=== PATIENT | male | born 1970 | race Caucasian/White ===

== ENCOUNTER 2017-02-16 11:02 | Inpatient (IN) | payer OTHER ==
[2017-02-16] MEDS ORDERED: SODIUM CHLORIDE 0.9% 1,000 ML IV STA ×2 (11:57)
[2017-02-16] MEDS ORDERED: AMPICILLIN-SULBACTAM 3 GM in SODIUM CHLORIDE 0.9% 100 ML IVPB STA (11:57)
[2017-02-16] MEDS ORDERED: IV VANCOMYCIN PER PHARMACY 1 EACH MISC MISCELLANE PRN (11:57)
--- NOTE | 2017-02-16 12:01 | ED ---
General Adult HPI - General Chief complaint: Extremity Problem,Nontraumatic Stated complaint: leg infection Time Seen by Provider: 02/16/17 11:25 Source: patient, RN notes reviewed, old records reviewed Mode of arrival: ambulatory Limitations: no limitations - History of Present Illness Initial comments: This is a 38-year-old male to the ER for evaluation of leg pain and swelling. Patient's severe pain and swelling of his left lower extremity. Patient has no history of diabetes, no other medical issues. Patient was seen by his family doctor for a bug bite he sustained about 3 days ago. Since then he's and put on IV or IM antibiotic shots which is beginning daily at his doctor's office, patient is also getting by mouth antibiotics, both in the form of a cephalosporin, patient has no improvement actually worsening, so leg is swelling erythema is increasing in symptoms or spreading up his leg. He has had occasional fever nausea and chills - Related Data Home Medications Medication Instructions Recorded Confirmed Cephalexin [Keflex] 500 mg PO TID 02/16/17 02/16/17 Allergies Allergy/AdvReac Type Severity Reaction Status Date / Time avocado Allergy Itching Verified 02/16/17 11:44 Review of Systems ROS Statement: Those systems with pertinent positive or pertinent negative responses have been documented in the HPI. ROS Other: All systems not noted in ROS Statement are negative. Past Medical History Past Medical History: GERD/Reflux Additional Past Medical History / Comment(s): CPAP at night History of Any Multi-Drug Resistant Organisms: None Reported Past Surgical History: Hernia Repair Additional Past Surgical History / Comment(s): facial surgery2 PLATES AND SCREWS IN PLACE. OPTICAL HERNIA. Past Anesthesia/Blood Transfusion Reactions: No Reported Reaction Past Psychological History: No Psychological Hx Reported Smoking Status: Former smoker Past Alcohol Use History: None Reported Past Drug Use History: None Reported - Past Family History Father Additional Family Medical History / Comment(s): WAS ALCOHOLIC.HAD SEVERAL STROKES AND AT AGE 61 Mother Family Medical History: Cancer Additional Family Medical History / Comment(s): LYMPHOMA- AT AGE 59 General Exam Limitations: no limitations General appearance: alert, in no apparent distress Head exam: Present: atraumatic, normocephalic, normal inspection Eye exam: Present: normal appearance, PERRL, EOMI. Absent: scleral icterus, conjunctival injection, periorbital swelling ENT exam: Present: normal exam, mucous membranes moist Neck exam: Present: normal inspection. Absent: tenderness, meningismus, lymphadenopathy Respiratory exam: Present: normal lung sounds bilaterally. Absent: respiratory distress, wheezes, rales, rhonchi, stridor Cardiovascular Exam: Present: regular rate, normal rhythm, normal heart sounds. Absent: systolic murmur, diastolic murmur, rubs, gallop, clicks GI/Abdominal exam: Present: soft, normal bowel sounds. Absent: distended, tenderness, guarding, rebound, rigid Extremities exam: Present: normal inspection, full ROM, normal capillary refill , other (O showed edema, is warm, significant cellulitis from ankle passed proximal knee). Absent: tenderness, pedal edema, joint swelling, calf tenderness Back exam: Present: normal inspection Neurological exam: Present: alert, oriented X3, CN II-XII intact Psychiatric exam: Present: normal affect, normal mood Skin exam: Present: warm, dry, intact, normal color. Absent: rash Course Vital Signs 02/16/17 11:16 Temperature 98.7 F Pulse Rate 83 Respiratory 18 Rate Blood Pressure 133/78 O2 Sat by Pulse 94 L Oximetry - Reevaluation(s) Reevaluation #1: 02/16/17 13:06 Outpatient ultrasound showing no DVT Medical Decision Making - Medical Decision Making 38 LEF reevaluation significant cellulitis infection of left lower Richelle patient be admitted for IV antibiotics and continued therapy, physical outpatient therapy - Lab Data Result diagrams: 02/16/17 12:15 02/16/17 12:15 Lab Results 02/16/17 02/16/17 Range/Units 12:15 12:15 WBC 5.9 (3.8-10.6) k/uL RBC 4.45 (4.30-5.90) m/uL Hgb 12.8 L (13.0-17.5) gm/dL Hct 37.1 L (39.0-53.0) % MCV 83.5 (80.0-100.0) fL MCH 28.8 (25.0-35.0) pg MCHC 34.5 (31.0-37.0) g/dL RDW 13.1 (11.5-15.5) % Plt Count 278 (150-450) k/uL Neutrophils % 65 % Lymphocytes % 21 % Monocytes % 6 % Eosinophils % 3 % Basophils % 1 % Neutrophils # 3.8 (1.3-7.7) k/uL Lymphocytes # 1.2 (1.0-4.8) k/uL Monocytes # 0.4 (0-1.0) k/uL Eosinophils # 0.2 (0-0.7) k/uL Basophils # 0.0 (0-0.2) k/uL Sodium 140 (137-145) mmol/L Potassium 4.0 (3.5-5.1) mmol/L Chloride 105 (98-107) mmol/L Carbon Dioxide 25 (22-30) mmol/L Anion Gap 10 mmol/L BUN 18 (9-20) mg/dL Creatinine 1.00 (0.66-1.25) mg/dL Est GFR (MDRD) Af Amer >60 (>60 ml/min/1.73 sqM) Est GFR (MDRD) Non-Af >60 (>60 ml/min/1.73 sqM) Glucose 99 (74-99) mg/dL Calcium 8.5 (8.4-10.2) mg/dL Phosphorus 3.6 (2.5-4.5) mg/dL Magnesium 2.1 (1.6-2.3) mg/dL Total Bilirubin 0.6 (0.2-1.3) mg/dL AST 38 (17-59) U/L ALT 57 (21-72) U/L Alkaline Phosphatase 64 (38-126) U/L Total Protein 7.1 (6.3-8.2) g/dL Albumin 3.7 (3.5-5.0) g/dL Disposition Clinical Impression: Cellulitis, Failure of outpatient treatment, Left leg cellulitis Disposition: ADMITTED IP TO THIS [facility] Condition: Fair Referrals: Freddy Turk MD [Primary Care Provider] - 1-2 days
[2017-02-16 12:46] LABS: Basophils % (A) 1 %; CH 27.9; CHCM 33.6; Eosinophils # (A) 0.2 k/uL (0-0.7); Eosinophils % (A) 3 %; HCT 37.1 % (39.0-53.0); HDW 2.73; HGB 12.8 gm/dL (13.0-17.5); Luc % (Auto) 3; Lymphocytes # (A) 1.2 k/uL (1.0-4.8); Lymphocytes % (A) 21 %; MCH 28.8 pg (25.0-35.0); MCHC 34.5 g/dL (31.0-37.0); MCV 83.5 fL (80.0-100.0); Mean Platelet Volume 7.1; Monocytes # (A) 0.4 k/uL (0-1.0); Monocytes % (A) 6 %; Neutrophils # (A) 3.8 k/uL (1.3-7.7); Neutrophils % (A) 65 %; RBC 4.45 m/uL (4.30-5.90); RDW 13.1 % (11.5-15.5); WBC 5.9 k/uL (3.8-10.6); WBC (Perox) 5.87
[2017-02-16 12:58] LABS: ALT 57 U/L (21-72); AST 38 U/L (17-59); Alkaline Phosphatase 64 U/L (38-126); Anion Gap 10 mmol/L; Blood Urea Nitrogen 18 mg/dL (9-20); Calcium 8.5 mg/dL (8.4-10.2); Carbon Dioxide 25 mmol/L (22-30); Chloride 105 mmol/L (98-107); Glucose 99 mg/dL (74-99); Magnesium 2.1 mg/dL (1.6-2.3); Non-African American GFR(MDRD) >60 (>60 ml/min/1.73 sqM); Phosphorous 3.6 mg/dL (2.5-4.5); Sodium 140 mmol/L (137-145); Total Bilirubin 0.6 mg/dL (0.2-1.3); Total Protein 7.1 g/dL (6.3-8.2)
[2017-02-16] MEDS ORDERED: VANCOMYCIN 2,000 MG in SODIUM CHLORIDE 0.9% 500 ML IVPB ONE ×2 (13:00→19:00)
--- NOTE | 2017-02-16 17:14 | P.HPIM ---
History of Present Illness H&P Date: 02/16/17 Chief Complaint: Left leg redness History of present complaint: This is a pleasant 46-year-old patient of Dr. oneill. Chronic stable medical conditions include GERD, arthritis sleep apnea. Patient week ago was bit by a spider. Patient went in to see Dr. oneill after there was increasing redness , pain, swelling in that leg. And he did receive IM ceftriaxone injection on 4 consecutive days including Monday and Monday and . There wasn't any Improvement in the redness and it continues to increase and hence the patient to the ER. Was sent down. Patient noticed some swelling to 3 days ago. Pain at the site. Patient otherwise in good health. GEN.: Tired EYES: None HEENT: None NECK: None RESPIRATORY: None CARDIOVASCULAR: None GASTROINTESTINAL: None GENITOURINARY: None MUSCULOSKELETAL: None LYMPHATICS: None HEMATOLOGICAL: None PSYCHIATRY: None NEUROLOGICAL: None DERMATOLOGICAL: As above Past medical history: GERD, obstructive sleep apnea Past surgical history: Hernia repair, facial surgery to place a screws in place, optical hernia repair Social history: , better, patient smoked for about 35 years stop in 2012 Home medications reviewed in the electronic computer ALLERGIES to avocado VITAL SIGNS: 98.7, 83, 18, 133/78, 94% room air GENERAL: Well-built, BMI 34.7, laying in bed a bit tired appearing. EYES: Pupils equal. Conjunctiva normal. HEENT: External appearance of nose and ears normal, oral cavity grossly normal. NECK: JVD not raised; masses not palpable. HEART: First and second heart sounds are normal; no edema. LUNGS: Respiratory rate normal; slightly decreased breath sounds. ABDOMEN: Soft, nontender, liver spleen not palpable, no masses palpable. LYMPHATICS: No lymph nodes palpable in the axilla and neck. PSYCH: Alert and oriented x3; mood and affect normal. NEUROLOGICAL: Cranial nerves grossly intact; no facial asymmetry, power and sensation grossly intact DERMATOLOGICAL: Patient left lower extremity below the knee is swollen and red slightly tender. Spider entry chan are noted. Investigations: White count 5.9, and Proventil 0.8, potassium 4.0,. Crit is normal. Assessment: -This is a patient who had a spider bite about a week ago. Received 4 consecutive days of IM Rocephin with no improvement. Patient continued to have increasing pain cellulitis in the leg. This appears to be a severe localized ALLERGIC reaction and may be a infective component of the same. -Obesity BMI 34.7 -Arthritis sleep apnea uses CPAP machine -Chronic GERD Plan: Patient started on IV Benadryl and IV Pepcid. We will also put the patient IV vancomycin. Use Silvadene cream and Kerlix and Lamonte wrap. Care was discussed with the patient and questions were answered, Dr. oneill and a dictation . Past Medical History Past Medical History: GERD/Reflux, Sleep Apnea/CPAP/BIPAP Additional Past Medical History / Comment(s): CPAP at night History of Any Multi-Drug Resistant Organisms: None Reported Past Surgical History: Hernia Repair Additional Past Surgical History / Comment(s): facial surgery [address] OPTICAL HERNIA REPAIR. 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 Smoking Status: Former smoker Past Alcohol Use History: None Reported Additional Past Alcohol Use History / Comment(s): STARTED SMOKING AT AGE 4 SMOKED 1 PACK IN 2-3 DAYS, QUIT 2011 Past Drug Use History: None Reported - Past Family History Father Family Medical History: CVA/TIA Additional Family Medical History / Comment(s): WAS ALCOHOLIC.HAD SEVERAL STROKES AND AT AGE 61 Mother Family Medical History: Cancer Additional Family Medical History / Comment(s): LYMPHOMA- AT AGE 59 Medications and Allergies Home Medications Medication Instructions Recorded Confirmed Type Cephalexin [Keflex] 500 mg PO TID 02/16/17 02/16/17 History Allergies Allergy/AdvReac Type Severity Reaction Status Date / Time avocado Allergy Itching Verified 02/16/17 11:44 Results CBC & Chem 7: 02/16/17 12:15 02/16/17 12:15
[2017-02-16] MEDS ORDERED: AMPICILLIN-SULBACTAM 3 GM in SODIUM CHLORIDE 0.9% 100 ML IVPB SCH (18:00)
[2017-02-16] MEDS: diphenhydrAMINE 50 MG/ML 1 ML VIAL IVP SCH ×2 (18:26→23:35)
[2017-02-16] MEDS: FAMOTIDINE 20 MG/2 ML VIAL IV SCH ×2 (19:21→19:41)
[2017-02-17] MEDS ORDERED: VANCOMYCIN 1,750 MG in SODIUM CHLORIDE 0.9% 250 ML IVPB SCH ×2
[2017-02-17] MEDS: diphenhydrAMINE 50 MG/ML 1 ML VIAL IVP SCH ×4 (05:53→23:41)
[2017-02-17] MEDS: VANCOMYCIN 1,750 MG in SODIUM CHLORIDE 0.9% 250 ML IVPB SCH ×2 (06:38→19:16)
[2017-02-17] MEDS: ENOXAPARIN 40 MG/0.4 ML SYRINGE SQ SCH (08:35)
[2017-02-17] MEDS: FAMOTIDINE 20 MG/2 ML VIAL IV SCH (08:35)
--- NOTE | 2017-02-17 19:07 | P.PN ---
<Esperanza Stinson - Last Filed: 02/17/17 18:54> Progress Note - Text DATE OF SERVICE: 02/17/2017 PRESENTING COMPLAINT: Left leg redness HISTORY OF PRESENT ILLNESS: 46-year-old patient who presented after being seen by his family doctor with increasing redness pain and swelling in the left leg. Received IM ceftriaxone 4 days with no improvement. INTERVAL HISTORY: 02/17/2017: Patient sitting up in the bed, appears comfortable. Left lower extremity less red less swollen than days previous. Left knee However remains red and warm swollen very tender to palpation. Patient continued on vancomycin with Silvadene cream Pepcid and Benadryl. Patient's ambulatory within the room in the hallways, tolerating his diet eating 100% of his meals. Moving his bowels last BM 02/17/2017. REVIEW OF SYSTEMS: Done for constitutional ,cardiovascular, GI, pulmonary with relevant findings as above. CURRENT MEDICATIONS Benadryl, Lovenox, Pepcid, Silvadene cream, vancomycin. PHYSICAL EXAM VITAL SIGNS: Temperature 98.4, pulse 67, respiratory rate 16, blood pressure 131/86, oxygen saturation 98% on room air. GENERAL APPEARANCE: Sitting up on the bed, not in distress. EYES: Pupils equal. Conjunctiva normal. NECK: JVD not raised. Mass not palpable. RESPIRATORY: Respiratory effort normal. Lungs clear to auscultation. CARDIOVASCULAR: First and second sounds normal. No edema. ABDOMEN: Soft. Liver and spleen not palpable. No tenderness. No mass palpable. PSYCHIATRY: Alert and oriented x3. Mood and affect normal. INTEGUMENT: Left lower extremity warm, red, tender, knee cap exquisitely tender to palpation INVESTIGATIONS: Hemoglobin 12.8, hematocrit 37.1, all other labs unremarkable. ASSESSMENT: -Left lower extremity cellulitis secondary to a spider bite, received 4 consecutive days of IM Rocephin no improvement. Appears to be a severe localized ALLERGIC reaction possible infective component. -Obesity body mass index 34.7 -Obstructive sleep apnea uses CPAP machine. -Chronic GERD PLAN: Continue patient on IV vancomycin, IV Benadryl and IV Pepcid. Sodium cream and Kerlix and Lamonte wraps for local wound care. Plan of care discussed with the patient at the bedside he is in agreement. We'll continue to follow closely. SHACKLER statement: Patient was seen and examined by nurse practitioner Esperanza Stinson and all elements of the case discussed with attending Dr. Lora <Cipriano Lora - Last Filed: 02/17/17 21:59> Progress Note - Text Attending note. Date of service-02/17/2017 This patient was seen and examined by me . Discussed the patient with my nurse practitioner Ms. Stinson. Acute severe ALLERGIC reaction localized following up spider bite and element of cellulitis. Redness and tenderness is improving. Localized area over the bursa red and tender. Patient able to flex his knee better. Overall feeling much better On examination: Decreased redness of the left leg. Some area of redness over the bursa area with localized tenderness. Able to flex the knee better. Investigations: Blood cultures-pending Assessment and plan: Acute left lower extremity cellulitis and ALLERGIC reaction sitting in a spider bite with some improvement. This likely but will rule out a bursitis. We'll get an orthopedic opinion. Continue with antibiotics. Discussed with the patient.
[2017-02-17] MEDS ORDERED: ACETAMINOPHEN TAB 325 MG TAB PO PRN (19:50)
[2017-02-17] MEDS: FAMOTIDINE 20 MG TAB PO SCH (21:10)
[2017-02-18] MEDS: diphenhydrAMINE 50 MG/ML 1 ML VIAL IVP SCH (05:40)
[2017-02-18 06:49] LABS: Basophils % (A) 1 %; CH 27.6; CHCM 32.7; Eosinophils # (A) 0.2 k/uL (0-0.7); Eosinophils % (A) 4 %; HGB 12.7 gm/dL (13.0-17.5); Luc # (Auto) 0.16; Luc % (Auto) 3; Lymphocytes # (A) 1.4 k/uL (1.0-4.8); Lymphocytes % (A) 27 %; MCH 28.3 pg (25.0-35.0); MCHC 33.4 g/dL (31.0-37.0); MCV 84.8 fL (80.0-100.0); Mean Platelet Volume 7.1; Monocytes # (A) 0.3 k/uL (0-1.0); Monocytes % (A) 6 %; Neutrophils # (A) 3.2 k/uL (1.3-7.7); Neutrophils % (A) 60 %; RBC 4.48 m/uL (4.30-5.90); RDW 13.4 % (11.5-15.5); WBC 5.3 k/uL (3.8-10.6); WBC (Perox) 5.52
[2017-02-18 07:08] LABS: Anion Gap 7 mmol/L; Blood Urea Nitrogen 12 mg/dL (9-20); Calcium 8.4 mg/dL (8.4-10.2); Carbon Dioxide 28 mmol/L (22-30); Chloride 107 mmol/L (98-107); Glucose 99 mg/dL (74-99); Non-African American GFR(MDRD) >60 (>60 ml/min/1.73 sqM); Potassium 4.7 mmol/L (3.5-5.1); Sodium 142 mmol/L (137-145)
[2017-02-18] MEDS: VANCOMYCIN 1,750 MG in SODIUM CHLORIDE 0.9% 250 ML IVPB SCH (07:11)
[2017-02-18 08:21] VITALS: BP 134/66; PULSE 66; RESP 18; TEMP 98.4
--- NOTE | 2017-02-18 08:26 | P.CNOR ---
History of Present Illness - [facility] Consult date: 02/18/17 Consult reason: joint pain History of present illness: Patient is a very pleasant previously healthy 46-year-old male who is currently admitted with a left knee infection following a failed course of outpatient antibiotics. The patient states that about a week ago he was put in by a spider. He subsequently developed swelling, redness and pain were the anterior aspect of his left knee. The patient failed attempts at outpatient antibiotics and was admitted to the hospital on Monday morning. There was concern for septic prepatellar bursitis so orthopedics was consulted. At the time of my consultation the patient is complaining of isolated left knee pain. He denies fevers, chills, or feelings of generalized malaise. He is in bed but states he would be able to walk. He says he thinks he is improved since he has been admitted to the hospital and is planning on being discharged home this afternoon. Past Medical History Past Medical History: GERD/Reflux, Sleep Apnea/CPAP/BIPAP Additional Past Medical History / Comment(s): CPAP at night History of Any Multi-Drug Resistant Organisms: None Reported Past Surgical History: Hernia Repair Additional Past Surgical History / Comment(s): facial surgery [address] OPTICAL HERNIA REPAIR. 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 Smoking Status: Former smoker Past Alcohol Use History: None Reported Additional Past Alcohol Use History / Comment(s): STARTED SMOKING AT AGE 4 SMOKED 1 PACK IN 2-3 DAYS, QUIT 2011 Past Drug Use History: None Reported - Past Family History Father Family Medical History: CVA/TIA Additional Family Medical History / Comment(s): WAS ALCOHOLIC.HAD SEVERAL STROKES AND AT AGE 61 Mother Family Medical History: Cancer Additional Family Medical History / Comment(s): LYMPHOMA- AT AGE 59 Medications and Allergies Home Medications Medication Instructions Recorded Confirmed Type Cephalexin [Keflex] 500 mg PO TID 02/16/17 02/16/17 History Allergies Allergy/AdvReac Type Severity Reaction Status Date / Time avocado Allergy Itching Verified 02/16/17 11:44 Physical Examination On exam the patient is in no apparent distress and is alert and oriented 3. He is resting comfortably in his hospital bed. A focused exam of the left leg was conducted. On inspection of the knee there is mild erythema and swelling over the anterior aspect of the patellar tendon and tibial tubercle. There is no appreciable knee effusion. He has no pain with passive range of motion of the knee. There is no palpable fluctuance over the anterior aspect of the knee. There is no subcutaneous crepitance. He has no calf tenderness. He has no pain with passive range of motion of the ankle or toes. Sensation is intact to light touch throughout the left foot. Motor function is intact in the left foot. Results - Labs Labs: Abnormal Lab Results - Last 24 Hours (Table) 02/18/17 Range/Units 06:32 Hgb 12.7 L (13.0-17.5) gm/dL Hct 38.0 L (39.0-53.0) % Microbiology - Last 24 Hours (Table) 02/16/17 12:15 Blood Culture - Preliminary Blood No Growth after 24 hours H & H 02/16/17 02/18/17 Range/Units 12:15 06:32 Hgb 12.8 L 12.7 L (13.0-17.5) gm/dL Hct 37.1 L 38.0 L (39.0-53.0) % Result Diagrams: 02/18/17 06:32 02/18/17 06:32 Assessment and Plan (1) Left leg cellulitis Status: Acute Plan: I do not see any clinical signs concerning for a septic knee arthritis or septic prepatellar bursitis. Would recommend continued antibiotics and use of K pads. 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 No plans for surgery at this point. The patient is okay to discharge home once appropriate antibiotics have been determined by the primary team. If the patient is still in the hospital tomorrow we will examine again to monitor his progress. Thank you very much for this consultation
[2017-02-18] MEDS: FAMOTIDINE 20 MG TAB PO SCH (09:56)
[2017-02-18] MEDS: ENOXAPARIN 40 MG/0.4 ML SYRINGE SQ SCH (09:56)
--- NOTE | 2017-02-18 18:23 | P.DS ---
<Esperanza Stinson - Last Filed: 02/18/17 18:13> Providers Date of admission: 02/16/17 13:33 Expected date of discharge: 02/18/17 Attending physician: Cipriano Lora Consults: 02/17/17 21:23 Consult Physician Routine Consulting Provider: Alejandro Hay Consult Reason/Comments: Right Knee pain Do you want consulting provider notified?: Yes, Notify in am 02/17/17 21:58 Consult Physician Routine Consulting Provider: Alejandro Hay Consult Reason/Comments: poss left bursitis Do you want consulting provider notified?: Yes Primary care physician: [place] [facility] Course: FINAL DIAGNOSES: -Left lower extremity cellulitis secondary to a spider bite, received 4 consecutive days of IM Rocephin no improvement. Appears to be a severe localized ALLERGIC reaction possible infective component. -Obesity body mass index 34.7 -Obstructive sleep apnea uses CPAP machine. -Chronic GERD HOSPTIAL COURSE: 46-year-old male who sustained a spider bite a few days ago was seen by his primary care physician received antibiotic therapy did not improve and received 4 consecutive days of IM Rocephin. On the fourth day there was still no improvement and patient was developing fever and chills therefore was sent for admission. Patient found to have cellulitis of the left lower extremity and was admitted for the same. IV fluids and antibiotics initiated as well as IV Benadryl and Pepcid as it was felt to be a localized ALLERGIC reaction with an infective component. Silvadene cream Kerlix and Lamonte wraps used for local wound care. Redness is erythema and swelling dissipated over most of the leg with the exception of the left knee concern for septic knee arthritis or septic patellar bursitis orthopedics was consulted. Tolerating his diet, ambulating in the hallways, moving his bowels. Left lower extremity much improved and as such stable for discharge. PHYSICAL EXAM: CARDIOVASCULAR: First and second sounds noted no edema RESPIRATORY: Effort normal, lungs clear to auscultation MUSKULOSKELETAL: Left knee red swollen tender, difficulty bending but able to perform straight leg raises INTEGUMENT: Left lower extremity warm erythematous tender to palpation, highest , concentration of redness to left knee Patient was seen and examined by nurse practitioner Esperanza Stinson in all elements of the case discussed with attending Dr. Lora DISPOSITION: Discharge home the care of his family. Patient Condition at Discharge: Fair Plan - Discharge Summary New Discharge Prescriptions: New Acetaminophen Tab [Tylenol] 650 mg PO Q6HR PRN tab PRN Reason: Fever And/ Or Pain Famotidine [Pepcid] 20 mg PO Q12HR #10 tab SILVER sulfADIAZINE CREAM [Silvadene Cream] 1 applic TOPICAL BID #1 dose Sulfamethox-Tmp 800-160Mg [Bactrim DS 800-160 mg] 1 tab PO Q12HR #14 tab Discontinued Cephalexin [Keflex] 500 mg PO TID Discharge Medication List Acetaminophen Tab [Tylenol] 650 mg PO Q6HR PRN tab 02/18/17 [Rx] Famotidine [Pepcid] 20 mg PO Q12HR #10 tab 02/18/17 [Rx] SILVER sulfADIAZINE CREAM [Silvadene Cream] 1 applic TOPICAL BID #1 dose [Rx] Sulfamethox-Tmp 800-160Mg [Bactrim DS 800-160 mg] 1 tab PO Q12HR #14 tab [Rx] Follow up Appointment(s)/Referral(s): Freddy Turk MD [Primary Care Provider] - 3 Days Ambulatory/Diagnostic Orders: Basic Metabolic Panel [LAB.AMB] Time Frame: 3 Days, Location: Determined By Patient Complete Blood Count w/diff [LAB.AMB] Time Frame: 3 Days, Location: Determined By Patient Patient Instructions/Handouts: Cellulitis (DC) Discharge Disposition: HOME SELF-CARE <Cipriano Lora - Last Filed: 02/18/17 22:23> Hospital Course: Attending note. Date of service-02/18/2017 This patient was seen and examined by me . Discussed the patient with my nurse practitioner Ms. Stinson. During much better. Swelling of the left leg is greatly improved. Some redness below the left knee present. No further intervention per orthopedics On examination: Redness greatly improved. Swelling gone down Investigations: Negative blood cultures, normal white count Assessment and plan: Acute left leg ALLERGIC reaction and acute cellulitis secondary to spider bite with clinical improvement. Discussed with the patient. We'll discharge and Bactrim. Patient advised to stay off his knee. Keep off work for a week. Discharge planning more than 35 minutes.
== END 2017-02-18 12:01 | disposition home or self-care (01) | DRG 603 ==
LOC: EC 11:02 → 5MS5E 13:33
PROVIDERS: ADMIT Hospitalist; ATTEND Hospitalist
DX: L03.116 Cellulitis of left lower limb (principal); E66.9 Obesity, unspecified; T63.301A Toxic effect of unspecified spider venom, accidental (unintentional), initial encounter; G47.33 Obstructive sleep apnea (adult) (pediatric); K21.9 Gastro-esophageal reflux disease without esophagitis; M19.90 Unspecified osteoarthritis, unspecified site; M25.562 Pain in left knee; Z68.34 Body mass index [BMI] 34.0-34.9, adult; Z87.891 Personal history of nicotine dependence
CPT/HCPCS: 36415; 80048; 80053; 83735; 84100; 85025; 87040; 96361; 96365; 99285

== ENCOUNTER 2017-03-16 20:58 | Emergency (ER) | payer OTHER ==
[2017-03-16 21:07] VITALS: BP 144/90; PULSE 89; RESP 20; TEMP 98.4
[2017-03-16] MEDS ORDERED: IBUPROFEN 800 MG TAB PO STA (21:13)
--- NOTE | 2017-03-16 21:14 | ED ---
General Adult HPI - General Chief complaint: Extremity Injury, Upper Stated complaint: IHS/Arm Injury Time Seen by Provider: 03/16/17 21:09 Source: patient, RN notes reviewed Mode of arrival: ambulatory Limitations: no limitations - History of Present Illness Initial comments: Patient 46-year-old male who presents emergency room today with chief complaint of injury to the right forearm that occurred yesterday while at work. He just met that a piece of steel fell off the roof when approximately 40 pounds hit him on the right forearm. Doesn't that he's been having increased pain to the right forearm and also elbow area over the last day. He states worse with certain movements and palpation. Patient denies any other complaints or associated symptoms. Patient states is not taking anything for the pain. Patient denies any recent fever, chills, shortness of breath, chest pain, back pain, abdominal pain, nausea or vomiting, numbness or tingling, dysuria or hematuria, constipation or diarrhea, headaches or visual changes, or any other complaints. - Related Data Previous Rx's Medication Instructions Recorded Acetaminophen Tab [Tylenol] 650 mg PO Q6HR PRN tab 02/18/17 Famotidine [Pepcid] 20 mg PO Q12HR #10 tab 02/18/17 SILVER sulfADIAZINE CREAM 1 applic TOPICAL BID #1 dose 02/18/17 [Silvadene Cream] Sulfamethox-Tmp 800-160Mg [Bactrim 1 tab PO Q12HR #14 tab 02/18/17 DS 800-160 mg] Ibuprofen [Motrin] 800 mg PO Q6HR #30 tab 03/16/17 Allergies Allergy/AdvReac Type Severity Reaction Status Date / Time avocado Allergy Itching Verified 03/16/17 21:07 Review of Systems ROS Statement: Those systems with pertinent positive or pertinent negative responses have been documented in the HPI. ROS Other: All systems not noted in ROS Statement are negative. Past Medical History Past Medical History: GERD/Reflux, Sleep Apnea/CPAP/BIPAP Additional Past Medical History / Comment(s): CPAP at night History of Any Multi-Drug Resistant Organisms: None Reported Past Surgical History: Hernia Repair Additional Past Surgical History / Comment(s): facial surgery [address] OPTICAL HERNIA REPAIR. Past Anesthesia/Blood Transfusion Reactions: No Reported Reaction Past Psychological History: No Psychological Hx Reported Smoking Status: Former smoker Past Alcohol Use History: None Reported Past Drug Use History: None Reported - Past Family History Father Family Medical History: CVA/TIA Additional Family Medical History / Comment(s): WAS ALCOHOLIC.HAD SEVERAL STROKES AND AT AGE 61 Mother Family Medical History: Cancer Additional Family Medical History / Comment(s): LYMPHOMA- AT AGE 59 General Exam - General Exam Comments Initial Comments: General: The patient is awake and alert, in no distress, and does not appear acutely ill. Neck: The neck is supple, there is no tenderness or JVD. Cardiovascular: There is a regular rate and rhythm. No murmur, rub or gallop is appreciated. Respiratory: Lungs are clear to auscultation, respirations are non-labored, breath sounds are equal. No wheezes, stridor, rales, or rhonchi. Musculoskeletal: Patient does have mild swelling to the right forearm. Faint aftab to the distal posterior aspect of the right forearm. Patient tender palpation distal radius also distal posterior aspect of the olecranon. Patient shows limited range of motion due to pain. Patient sensations are intact pulses equal bilaterally 2+. Mild tenderness down to the right wrist or hand. No tenderness to the right humerus. Neurological: A&O x 3. CN II-XII intact, There are no obvious motor or sensory deficits. Coordination appears grossly intact. Speech is normal. Skin: Skin is warm and dry and no rashes or lesions are noted. Psychiatric: Normal mood and affect. Limitations: no limitations Course Vital Signs 03/16/17 21:04 Temperature 98.4 F Pulse Rate 89 Respiratory 20 Rate Blood Pressure 144/90 O2 Sat by Pulse 96 Oximetry Medical Decision Making - Medical Decision Making Patient's x-ray negative for any acute fracture dislocation. Results were discussed with patient. Patient is advised to follow-up in 7-10 days for repeat x-rays if symptoms persist. Patient advised continued ice elevate the affected area and use ibuprofen for pain. Advised return for any other concerns. Disposition Clinical Impression: Forearm contusion Disposition: HOME SELF-CARE Condition: Good Instructions: Contusion in Adults (ED) Additional Instructions: Please continue to ice elevate the affected area as discussed. Please use ibuprofen for pain. Please follow-up the family doctor or orthopedics in 7-10 days for repeat x-rays if symptoms persist. Please return to emergency room if the symptoms increase or worsen or for any other concerns. Prescriptions: Ibuprofen [Motrin] 800 mg PO Q6HR #30 tab Referrals: Freddy Turk MD [Primary Care Provider] - 1-2 days Alejandro Hay MD [Medical Doctor] - 1-2 days Time of Disposition: 22:01
--- NOTE | 2017-03-16 21:35 | XR ---
EXAMINATION TYPE: XR forearm RT DATE OF EXAM: 03/16/2017 COMPARISON: NONE HISTORY: Pain TECHNIQUE: 3 views FINDINGS: I see no fracture nor dislocation. There is spurring in the olecranon process of the ulna. Carpal bones are intact. IMPRESSION: No acute abnormality of the right forearm.
== END 2017-03-16 22:07 | disposition home or self-care (01) ==
LOC: EC 20:58
DX: S50.11XA Contusion of right forearm, initial encounter (principal); Z87.891 Personal history of nicotine dependence; Z91.018 Allergy to other foods; W20.8XXA Other cause of strike by thrown, projected or falling object, initial encounter; Y93.89 Activity, other specified; Y99.0 Civilian activity done for income or pay; Y92.69 Other specified industrial and construction area as the place of occurrence of the external cause
CPT/HCPCS: 99283

== ENCOUNTER → 2018-12-28 | Outpatient (CLI) | payer BC, OTHER ==
--- NOTE | 2018-12-28 10:34 | P.STRESS ---
- Stress Test Note Stress Test Results/Findings: Exam Performed: NM stress cardiolite complete Exam Date: 12/28/18 Reason for Exam: CHEST PAIN Height: 5 ft 10 in Weight: 107.501 kg Protocol: STEFF Stage: 4 Duration of Exercise: 9.4 Resting Heart Rate: 60 Resting Blood Pressure: 131/89 Maximum Achieved Heart Rate: 158 Maximum Achieved Blood Pressure: 210/84 85% PMHR: 145 100% PMHR: 170 METS: 11.3 Technologist Comment: Stress Test Results/Findings: This is a 48-year-old gentleman with history of smoking being evaluated for symptoms of chest pain. Stress data: Baseline EKG showed sinus rhythm with normal NC interval and QRS duration. Blood pressure at rest is 130/89 with pulse rate of 60. Patient walked on the Steff protocol for 9 minutes and 40 seconds achieving a maximal heart rate of 158 with blood pressure of 210/84. EKGs taken during and after exercise did not reveal any significant changes from the baseline. Patient did not experience any chest pain. No arrhythmias are detected. Final impression: #1. Negative stress test #2. Patient did not experience any chest pain. #3. No arrhythmias are detected #4. Report on the nuclear images to be given by the radiologist
--- NOTE | 2018-12-28 11:11 | NM ---
EXAMINATION TYPE: NM stress lexiscan cardiolite DATE OF EXAM: 12/28/2018 COMPARISON: NONE HISTORY: Chest pain TECHNIQUE: After the intravenous administration of 10.2 mCi Tc 99m Sestamibi - Cardiolite resting SP ECT images acquired 45 minutes post injection. The patient received 0.4mg Lexiscan, 26.2 mCi Tc 99m Sestamibi - Stress images obtained [address] injection FINDINGS: Review of stress and rest SPECT images demonstrates no distinct perfusion abnormality. Gated analysi s shows normal wall motion with an estimated left ventricular ejection fraction of 72 %. IMPRESSION: No scintigraphic evidence for reversible ischemia.
--- NOTE | 2018-12-31 13:43 | EST ---
Stress Test Results/Findings: Exam Performed: NM stress cardiolite complete Exam Date: 12/28/18 Reason for Exam: CHEST PAIN Height: 5 ft 10 in Weight: 107.501 kg Protocol: STEFF Stage: 4 Duration of Exercise: 9.4 Resting Heart Rate: 60 Resting Blood Pressure: 131/89 Maximum Achieved Heart Rate: 158 Maximum Achieved Blood Pressure: 210/84 85% PMHR: 145 100% PMHR: 170 METS: 11.3 Technologist Comment: Stress Test Results/Findings: This is a 48-year-old gentleman with history of smoking being evaluated for symptoms of chest pain. Stress data: Baseline EKG showed sinus rhythm with normal GA interval and QRS duration. Blood pressure at rest is 130/89 with pulse rate of 60. Patient walked on the Steff protocol for 9 minutes and 40 seconds achieving a maximal heart rate of 158 with blood pressure of 210/84. EKGs taken during and after exercise did not reveal any significant changes from the baseline. Patient did not experience any chest pain. No arrhythmias are detected. Final impression: #1. Negative stress test #2. Patient did not experience any chest pain. #3. No arrhythmias are detected #4. Report on the nuclear images to be given by the radiologist PIPE
== END | disposition home or self-care (01) ==
LOC: RADNMMAIN 08:06
PROVIDERS: ATTEND Family Medicine
DX: R07.89 Other chest pain (principal)
CPT/HCPCS: 93017; 78452; A9500

== ENCOUNTER → 2019-01-11 | Outpatient (CLI) | payer BC, OTHER ==
--- NOTE | 2019-01-11 18:24 | ECHOF ---
Referral Reason:R07.89 Other chest pain MEASUREMENTS -------- HEIGHT: 177.8 cm WEIGHT: 107.5 kg BP: RVIDd: 3.3 cm (< 3.3) IVSd: 1.3 cm (0.6 - 1.1) LVIDd: 4.6 cm (3.9 - 5.3) LVPWd: 1.2 cm (0.6 - 1.1) IVSs: 1.8 cm LVIDs: 2.7 cm LVPWs: 1.6 cm LA Diam: 3.4 cm (2.7 - 3.8) LAESV Index (A-L): 24.57 ml/m Ao Diam: 3.4 cm (2.0 - 3.7) AV Cusp: 2.7 cm (1.5 - 2.6) MV EXCURSION: 18.395 mm (> 18.000) MV EF SLOPE: 107 mm/s (70 - 150) EPSS: 0.6 cm MV E Manoj: 0.86 m/s MV DecT: 266 ms MV A Manoj: 0.75 m/s MV E/A Ratio: 1.14 FINDINGS -------- Sinus rhythm. This was a technically adequate study. The left ventricular size is normal. There is mild concentric left ventricular hypertrophy. Overa ll left ventricular systolic function is normal with, an EF between 60 - 65 %. The right ventricle is normal in size. Normal LA size by volume 22+/-6 ml/m2. The right atrium is normal in size. Interatrial and interventricular septum intact. There is mild aortic valve sclerosis. The mitral valve is normal. The tricuspid valve appears structurally normal. Trace/mild (physiologic) pulmonic regurgitation. The aortic root size is normal. Normal inferior vena cava with normal inspiratory collapse consistent with estimated right atrial pre ssure of 5 mmHg. There is no pericardial effusion. CONCLUSIONS -------- 1. Sinus rhythm. 2. This was a technically adequate study. 3. The left ventricular size is normal. 4. There is mild concentric left ventricular hypertrophy. 5. Overall left ventricular systolic function is normal with, an EF between 60 - 65 %. 6. The right ventricle is normal in size. 7. Normal LA size by volume 22+/-6 ml/m2. 8. The right atrium is normal in size. 9. Interatrial and interventricular septum intact. 10. There is mild aortic valve sclerosis. 11. The mitral valve is normal. 12. The tricuspid valve appears structurally normal. 13. Trace/mild (physiologic) pulmonic regurgitation. 14. The aortic root size is normal. 15. Normal inferior vena cava with normal inspiratory collapse consistent with estimated right atrial pressure of 5 mmHg. 16. There is no pericardial effusion. [employer] CLERK: Charlene Valles RDCS
== END | disposition home or self-care (01) ==
LOC: RADECHMAIN 15:02
PROVIDERS: ATTEND Family Medicine
DX: R07.89 Other chest pain (principal); I51.7 Cardiomegaly; I35.8 Other nonrheumatic aortic valve disorders
CPT/HCPCS: 93306

== ENCOUNTER 2020-04-28 08:14 | Day surgery (SDC) | payer BC ==
[2020-04-24 18:00] VITALS: BMI 34.8
[~2020-04-28 08:14] MED LIST: LACTATED RINGERS 1,000 ML IV SCH; LIDOCAINE 1% (10MG/ML) FOR IV START INTRADERMA PRN
[2020-04-28 08:39] VITALS: RESP 18; TEMP 98.6
[2020-04-28] MEDS ORDERED: LACTATED RINGERS 1,000 ML IV ONE (08:45)
[2020-04-28] MEDS ORDERED: LIDOCAINE 1% (10MG/ML) FOR IV START INTRADERMA ONE (08:46)
[2020-04-28] MEDS ORDERED: PROPOFOL 10 MG/ML 20 ML VIAL IV ONE (09:55)
--- NOTE | 2020-04-28 10:26 | P.PCN ---
Date of Procedure: 04/28/20 Description of Procedure: BRIEF HISTORY: 49-year-old male presenting for outpatient colonoscopy for screening for malignant neoplasm of the colon. No prior colonoscopies. No family history of colon cancer. No change in bowel habits. PROCEDURE PERFORMED: Colonoscopy. PREOPERATIVE DIAGNOSIS: Screening for malignant neoplasm of the colon, no prior colonoscopy. ESTIMATED BLOOD LOSS: Minimal. IV sedation per Anesthesia. PROCEDURE: After informed consent was obtained, the patient, was brought into the endoscopy unit. IV sedation was administered by Anesthesia under continuous monitoring. Digital rectal examination was normal. Initially the Olympus CF-190 flexible video colonoscope was then inserted in the rectum, gradually advanced into the cecum without any difficulty. Careful examination was performed as the scope was gradually being withdrawn. Ileocecal valve and the appendiceal orifice were visualized and appeared normal. Prep was excellent. Mucosa of the cecum, ascending colon, transverse colon, descending colon, sigmoid colon, and rectum appeared normal, with a few scattered diverticula in the sigmoid colon. Retroflexion was performed in the rectum and no lesions were seen, low-grade internal hemorrhoids seen. The patient tolerated the procedure well. IMPRESSION: Mild sigmoid diverticulosis. Otherwise, normal-appearing colon from rectum to cecum. RECOMMENDATIONS: Findings of this examination were discussed with the patient and his . Okay to resume diet. Okay to resume medications. Recommendation is for repeat colonoscopy in 10 years for screening, or sooner if any signs or symptoms which warrant further evaluation developed.
[2020-04-28 10:45] VITALS: BP 132/73; PULSE 64
== END 2020-04-28 10:59 | disposition home or self-care (01) ==
LOC: ORWHC2ENDO 08:14
PROVIDERS: ATTEND Internal Medicine
DX: Z12.11 Encounter for screening for malignant neoplasm of colon (principal); K57.30 Diverticulosis of large intestine without perforation or abscess without bleeding; K64.8 Other hemorrhoids; G47.33 Obstructive sleep apnea (adult) (pediatric); M10.9 Gout, unspecified; Z79.899 Other long term (current) drug therapy; Z98.890 Other specified postprocedural states; Z99.89 Dependence on other enabling machines and devices; Z91.018 Allergy to other foods
CPT/HCPCS: J2704; G0121; 45378